=== PATIENT | female | born 1950 | race Caucasian/White ===

== ENCOUNTER → 2017-04-21 | Outpatient (CLI) | payer MEDICARE ==
[~2017-04-21] MED LIST: ACET500T68 PO; ALBU8.5H IH; AMLO-99 PO; ASCO-480 PO; ASPI81TA39 PO; BACL-1 PO; CEPH250C37 PO; CLON-389 PO; DIPH-740 PO; DOCU-416 PO; DULO60CA56 PO; Docusate Sodium PO; ESTR-35 PO; FAMO20TA28 PO; FENO145T PO; FLUC100T39 PO; HYDR-385 PO; INT1APT SUBQ; LEVO50TA86 PO; LISI-374 PO; MEDR5TAB PO; OXYC-374 PO; OXYGEN; PER PO; PILO5TAB12 PO; SIME125T56 PO; TIO18R INH; TRAM-420 PO; [UNRECOGNIZED DRUG - CODE] PO; [UNRECOGNIZED DRUG - CODE] PO; [UNRECOGNIZED DRUG - CODE] PO
[2017-04-21 10:58] LABS: PLATELET COUNT, AUTOMATED 290 K/uL (150-450)
== END ==
LOC: LAB 10:13
PROVIDERS: ATTEND Internal Medicine Nephrology
DX: I12.9 Hypertensive chronic kidney disease with stage 1 through stage 4 chronic kidney disease, or unspecified chronic kidney disease (principal); N18.3 Chronic kidney disease, stage 3 (moderate); E55.9 Vitamin D deficiency, unspecified; E21.2 Other hyperparathyroidism; R80.9 Proteinuria, unspecified
CPT/HCPCS: 36415; 82040; 82306; 82310; 82374; 82435; 82565; 82570; 82947; 83970; 84100; 84132; 84156; 84295; 84520; 85025

== ENCOUNTER → 2017-12-22 | Outpatient (CLI) | payer MEDICARE ==
[~2017-12-22] MED LIST changes: +AMLO-113 PO; -AMLO-99 PO; -FENO145T PO; +FENO145T36 PO
[2017-12-22 09:56] LABS: PLATELET COUNT, AUTOMATED 284 K/uL (150-450)
== END ==
LOC: LAB 09:33
PROVIDERS: ATTEND Internal Medicine Nephrology
DX: I12.9 Hypertensive chronic kidney disease with stage 1 through stage 4 chronic kidney disease, or unspecified chronic kidney disease (principal); N18.3 Chronic kidney disease, stage 3 (moderate); E83.52 Hypercalcemia; R80.1 Persistent proteinuria, unspecified; E55.9 Vitamin D deficiency, unspecified
CPT/HCPCS: 36415; 82040; 82306; 82310; 82374; 82435; 82565; 82570; 82947; 84100; 84132; 84156; 84295; 84520; 85025

== ENCOUNTER 2018-07-24 17:28 | Emergency (ER) | payer MEDICARE ==
[~2018-07-24 17:28] MED LIST changes: -AMLO-113 PO; +AMLO-127 PO
[2018-07-24 18:00] VITALS: BP 106/72
--- NOTE | 2018-07-24 18:03 | ER Report ---
History and Physical Time Seen By MD: 18:03 Hx. of Stated Complaint: has had redness in the left 5th toe for two weeks. was seen and told it was gout. redness has spread to thje whole top of the foot HPI/ROS CHIEF COMPLAINT: Redness, swelling and pain in the foot and left fifth toe HISTORY OF PRESENT ILLNESS: This is a 67-year-old female. She does have gout. She's had pain and redness in the left fifth toe for about 2 weeks. She was seen and was told it was gout. However the redness has spread onto the foot. She had been started on Bactrim and cephalexin. Despite this she is having increased redness swelling and pain. The left fifth toe is very swollen and very painful. Other than the pain, she has normal sensation. Denies any fevers or chills. Allergies: Coded Allergies: Iodinated Contrast Media - IV Dye (Verified Allergy, Severe, RESPIRATORY ARREST, 01/09/14) erythromycin base (Verified Allergy, Intermediate, SEVERE ABDOMINAL PAIN, 01/09/14) iodine (Verified Allergy, Intermediate, RASH, 01/09/14) ciprofloxacin (Verified Allergy, Unknown, 01/09/14) Uncoded Allergies: bandaids (Adverse Reaction, Unknown, 01/08/14) Home Meds Active Scripts Amoxicillin/Pot Clav 875-125 Mg Tab (AUGMENTIN 875-125 TABLET) 1 Each Tablet, 1 TAB PO Q12H, #20 TAB 0 Refills Prov:CORRINA LALA MD 07/24/18 Reported Medications [Oxygen] (Oxygen) No Conflict Check, 2 L NA HS 01/09/14 Famotidine (PEPCID) 20 Mg Tablet, 20 MG PO TID PRN for HEARTBURN, #10 TAB TAKE 1 TABLET BY MOUTH EVERY DAY 11/09/13 Ascorbic Acid (VITAMIN C WITH ROMÁN HIPS) 1,000 Mg Tablet, 2000 MG PO BID 11/09/13 Aspirin (SHRUTHI CHEWABLE) 81 Mg Tab.chew, 81 MG PO HS, TAB.CHEW 11/09/13 Acetaminophen (TYLENOL EXTRA STRENGTH) 500 Mg Tablet, 3057-5532 MG PO DAILY PRN for PAIN 11/09/13 Albuterol Sulfate 90 Mcg/Act (PROAIR HFA 90 MCG/ACT) 8.5 Gm Hfa.aer.ad, 1-2 PUFF IH DAILY PRN for CONGESTION 11/09/13 Tiotropium [place] (SPIRIVA) 18 Mcg/Cap Inh, 18 MCG INH DAILY, INH 11/09/13 Tramadol Hcl (TRAMADOL HCL) 50 Mg Tablet, 50 MG PO BID 11/09/13 Amlodipine Besylate (AMLODIPINE BESYLATE) 10 Mg Tablet, 1 TAB PO QDAY, TAB TAKE ONE TABLET BY MOUTH EVERY DAY 11/09/13 Baclofen (BACLOFEN) 10 Mg Tablet, 20-40 MG PO DAILY, #30 TAB Take 1 tablet in AM and 2 tablets in PM 11/09/13 Estradiol (ESTRACE) 1 Mg Tablet, 1 MG PO DAILY 11/09/13 Pilocarpine Hcl (PILOCARPINE HCL) 5 Mg Tablet, 2 TAB PO QID 11/09/13 Lisinopril (LISINOPRIL) 40 Mg Tablet, 40 MG PO QDAY 11/09/13 Interferon Beta-1A (REBIF 22 MCG/0.5 ML SYRINGE) 22 Mcg Injs, 22 MCG SUBQ 3XW 11/09/13 Levothyroxine Sodium (LEVOTHYROXINE SODIUM) 50 Mcg Tablet, 50 MCG PO QDAY 11/09/13 Discontinued Reported Medications Duloxetine Hcl (CYMBALTA) 60 Mg Capsule.dr, 60 MG PO QAM, #5 CAP TAKE 1 CAPSULE BY MOUTH EVERY DAY 01/08/14 Diphenhydramine Hcl (BENADRYL) 25 Mg Capsule, 25 MG PO Q6-8H PRN for ITCHING/INSOMNIA, CAPSULE TAKE 1 CAPSULE BY MOUTH EVERY 6 TO 8 HOURS 11/09/13 Simethicone (MYL[place] GAS MAXIMUM STRENGTH) 125 Mg Tab.chew, 125 MG PO PRN, TAB.CHEW 11/09/13 Mag Carb/Al Hydrox/Alginic Ac (GAVISCON EXTRA STRENGTH LIQ) 355 Ml Oral.susp, 355 ML PO PRN 11/09/13 Vitamin B Complex (STRESS B) 1 Each Tablet, 1 EACH PO DAILY 11/09/13 Clonazepam (CLONAZEPAM) 1 Mg Tab.rapdis, 1 MG PO BID PRN for ANXIETY, #6 TAB TAKE ONE TABLET BY MOUTH TWICE A DAY 11/09/13 Gabapentin Enacarbil (HORIZANT) 600 Mg Tab.er.24h, 600 MG PO DAILY 11/09/13 Fenofibrate Nanocrystallized (FENOFIBRATE) 145 Mg Tablet, 145 MG PO QDAY 11/09/13 Medroxyprogesterone Acetate (MEDROXYPROGESTERONE ACETATE) 5 Mg Tablet, 5 MG PO DAILY 11/09/13 Discontinued Scripts Fluconazole (FLUCONAZOLE) 100 Mg Tablet, 1 TAB PO QDAY, #8 TAB 0 Refills Take 2 tablets today and then 1 tablet each day for 6 days. Prov:JESSIE TOMAS MD 01/12/14 Oxycodone/Acetaminophen (OXYCODONE/ACETAMINOPHEN 5MG/325 MG) 1 Tab Tab, 1-2 TAB PO Q4H PRN for MODERATE PAIN, #20 TAB 0 Refills Prov:JESSIE TOMAS MD 01/12/14 [Docusate Sodium] 100 MG CAP No Conflict Check, 1 CAP PO BID, #30 CAP 0 Refills Prov:JESSIE TOMAS MD 01/12/14 Reviewed Nurses Notes: Yes Constitutional Vital Sign - Last 24 Hours 07/24/18 07/24/18 07/24/18 07/24/18 17:46 17:58 18:00 18:13 Temp 97.9 Pulse 91 86 80 Resp 18 B/P (MAP) 141/60 106/72 (83) Pulse Ox 90 95 95 O2 Delivery Nasal Cannula 07/24/18 07/24/18 07/24/18 07/24/18 18:18 18:33 18:48 19:03 Pulse 84 84 79 78 Pulse Ox 96 96 96 100 07/24/18 07/24/18 07/24/18 07/24/18 19:18 19:33 19:38 19:53 Pulse 86 78 78 76 Pulse Ox 91 98 95 95 07/24/18 07/24/18 07/24/18 07/24/18 20:08 20:13 20:28 20:43 Pulse 76 78 ??? 79 Pulse Ox 95 95 71 95 Physical Exam General Appearance: Alert, no acute distress. Cardiac: regular rate and rhythm, normal peripheral perfusion. Neuro: Normal sensation in the foot. Skin: Has redness with swelling and what appears to be fluctuance in the left fifth toe. Extremely tender to palpation. Also with redness and swelling extending up onto the dorsal surface of the foot. Musculoskeletal: Normal motor function. DIFFERENTIAL DIAGNOSIS: After history and physical exam differential diagnosis was considered for a patient with question of infection versus gout in the foot. This is more likely a combination of the 2. The toe itself could certainly be tophaceous gout but there appears to be more of an fluctuant pocket and, likely abscess Medical Decision Making Data Points Result Diagram: 07/24/18 1814 Laboratory Hematology Test 07/24/18 18:14 Red Blood Count 4.88 M/uL (4.17-5.56) Mean Corpuscular Volume 93.3 fL (80.0-96.0) Mean Corpuscular Hemoglobin 31.6 pg (26.0-33.0) Mean Corpuscular Hemoglobin Concent 33.9 g/dL (32.0-36.0) Red Cell Distribution Width 12.8 % (11.5-14.5) Mean Platelet Volume 7.3 fL (7.2-11.1) Neutrophils (%) (Auto) 78.2 % (39.4-72.5) Lymphocytes (%) (Auto) 9.1 % (17.6-49.6) Monocytes (%) (Auto) 10.7 % (4.1-12.4) Eosinophils (%) (Auto) 1.2 % (0.4-6.7) Basophils (%) (Auto) 0.8 % (0.3-1.4) Nucleated RBC Relative Count (auto) 0.0 /100WBC Neutrophils # (Auto) 8.6 K/uL (2.0-7.4) Lymphocytes # (Auto) 1.0 K/uL (1.3-3.6) Monocytes # (Auto) 1.2 K/uL (0.3-1.0) Eosinophils # (Auto) 0.1 K/uL (0.0-0.5) Basophils # (Auto) 0.1 K/uL (0.0-0.1) Nucleated RBC Absolute Count (auto) 0.00 K/uL Erythrocyte Sedimentation Rate 14 mm/HOUR (0-30) Uric Acid 11.0 mg/dl (2.5-7.5) Chemistry Test 07/24/18 18:14 White Blood Count 11.0 k/uL (4.5-11.0) Red Blood Count 4.88 M/uL (4.17-5.56) Hemoglobin 15.4 g/dL (12.0-16.0) Hematocrit 45.6 % (34.0-47.0) Mean Corpuscular Volume 93.3 fL (80.0-96.0) Mean Corpuscular Hemoglobin 31.6 pg (26.0-33.0) Mean Corpuscular Hemoglobin Concent 33.9 g/dL (32.0-36.0) Red Cell Distribution Width 12.8 % (11.5-14.5) Platelet Count 332 K/uL (150-450) Mean Platelet Volume 7.3 fL (7.2-11.1) Neutrophils (%) (Auto) 78.2 % (39.4-72.5) Lymphocytes (%) (Auto) 9.1 % (17.6-49.6) Monocytes (%) (Auto) 10.7 % (4.1-12.4) Eosinophils (%) (Auto) 1.2 % (0.4-6.7) Basophils (%) (Auto) 0.8 % (0.3-1.4) Nucleated RBC Relative Count (auto) 0.0 /100WBC Neutrophils # (Auto) 8.6 K/uL (2.0-7.4) Lymphocytes # (Auto) 1.0 K/uL (1.3-3.6) Monocytes # (Auto) 1.2 K/uL (0.3-1.0) Eosinophils # (Auto) 0.1 K/uL (0.0-0.5) Basophils # (Auto) 0.1 K/uL (0.0-0.1) Nucleated RBC Absolute Count (auto) 0.00 K/uL Erythrocyte Sedimentation Rate 14 mm/HOUR (0-30) Uric Acid 11.0 mg/dl (2.5-7.5) Microbiology Microbiology Date/Time Source Procedure Growth Status 07/24/18 20:52 Foot Left Wound Culture - Preliminary NO GROWTH SO FAR, SET LATE. REINCUBATED Resulted EKG/Imaging Imaging INDICATION: toe and foot red and swollen. DATE: 07/24/2018 8:07 PM. TECHNIQUE: TOE LEFT FOOT FIFTH DIGIT COMPARISON: None FINDINGS: Soft tissues at the little toe are markedly swollen at the level of the middle and distal phalanx. No fracture is conspicuous. IMPRESSION: Notable soft tissue swelling of the little toe but no conspicuous fracture. Trauma or infection could both be possible etiologies. Report Dictated By: Boston Puckett MD at 07/24/2018 8:07 PM ED Course/Re-evaluation ED Course Initial x-ray was done, no signs of degeneration of the bone or signs of osteomyelitis. There is significant swelling. After the x-ray, discussed with the patient we need to find out what was going on in that toe. Recommended doing a digital block followed by attempted aspiration followed by possible need for incision and drainage. Explained the risks and benefits and she agreed to go ahead with this. Procedure: Toe swelling and fluctuant pocket drainage The patient's abscess was located on the left fifth toe. I obtained verbal consent from the patient to drain the abscess who was informed about the possibility of bleeding and pain. Digital block of the left fifth toe was done using 1% lidocaine without epinephrine and 0.5% bupivacaine without epinephrine after this was numbed, using some Chloroprep, attempted aspiration was done. Unable to aspirate any fluid, so switched to an incision and drainage technique. The abscess was incised with a scalpel and a large amount of purulent drainage was expressed. This may have been a combination of purulence as well as tophi. I irrigated the wound and placed some packing. The patient tolerated the procedure well. The procedure was performed by myself. Stopped Bactrim because it could make gout flareup worse, and the cephalexin will not provide broad enough coverage at this point. Switched to Augmentin 875/125 twice a day for 10 days. Recommended follow-up with primary care tomorrow as planned for reevaluation. Decision to Disposition Date: July 24, 2018 Decision to Disposition Time: 21:02 Depart Departure Latest Vital Signs Vital Signs Date Time Temp Pulse Resp B/P (MAP) Pulse Ox O2 Delivery O2 Flow Rate FiO2 07/24/18 20:43 79 95 07/24/18 18:00 106/72 (83) 07/24/18 17:46 97.9 18 Nasal Cannula Impression: Primary Impression: Cellulitis of foot Additional Impression: Abscess of toe of left foot Condition: Improved Disposition: HOME OR SELF-CARE Referrals: JESSIE MATSON MD (PCP) New Scripts Amoxicillin/Pot Clav 875-125 Mg Tab (AUGMENTIN 875-125 TABLET) 1 Each Tablet 1 TAB PO Q12H, #20 TAB 0 Refills Prov: CORRINA LALA MD 07/24/18 Patient Instructions: Cellulitis (ED) Additional Instructions: Stop the Cephalexin and Bactrim because at this time the Cephalexin will not provide enough coverage for the types of bacteria we are concerned about and the Bactrim can make gout flare up worse. Start Augmentin 875/125 twice a day for 10 days. Percocet 5/325, one every 4 hours as needed for pain. Follow-up with your doctor tomorrow as planned for wound re-check and follow-up of how the antibiotics are working. They will likely need to see you additional times this week as well. Problem Qualifiers CORRINA LALA MD July 24, 2018 18:03
[2018-07-24 18:50] LABS: PLATELET COUNT, AUTOMATED 332 K/uL (150-450)
--- NOTE | 2018-07-24 20:12 | RADIOLOGY IMAGING REPORT ---
FACILITY: [facility] PATIENT NAME: Chery Luther : 1950 MR: [id number] V: [id number] EXAM DATE: ORDERING PHYSICIAN: CORRINA LALA TECHNOLOGIST: Location: [facility] - [place] Patient: Chery Luther : 1950 Visit/Account:[id number] Date of Sevice: 07/24/2018 INDICATION: toe and foot red and swollen. DATE: 07/24/2018 8:07 PM. TECHNIQUE: TOE LEFT FOOT FIFTH DIGIT COMPARISON: None FINDINGS: Soft tissues at the little toe are markedly swollen at the level of the middle and distal p halanx. No fracture is conspicuous. IMPRESSION: Notable soft tissue swelling of the little toe but no conspicuous fracture. Trauma or infection could both be possible etiologies. Report Dictated By: Boston Puckett MD at 07/24/2018 8:07 PM Report E-Signed By: Boston Puckett MD at 07/24/2018 8:08 PM WSN:[id number]
[2018-07-24] MEDS ORDERED: AMOX/CLAV 875 MG TAB PO ONE (21:00)
[2018-07-24] MEDS ORDERED: AMOX-559 PO (21:04)
== END 2018-07-24 21:33 | disposition home or self-care (01) ==
LOC: ER 17:56
DX: L03.116 Cellulitis of left lower limb (principal); L02.612 Cutaneous abscess of left foot
CPT/HCPCS: 10060; 36415; 73660; 84550; 85025; 85651; 87070; A9270; 99283

== ENCOUNTER → 2018-08-15 | Outpatient (CLI) | payer MEDICARE ==
[~2018-08-15] MED LIST changes: +AMOX-559 PO
--- NOTE | 2018-08-17 08:20 | RADIOLOGY IMAGING REPORT ---
FACILITY: [facility] PATIENT NAME: VINI ALVAREZ : [id number] MR: [id number]: [id number] EXAM DATE: [id number] ORDERING PHYSICIAN: JESSIE MATSON TECHNOLOGIST: Mouna Trinh PROCEDURE: BILATERAL DIGITAL SCREENING MAMMOGRAM WITH CAD ASSISTED INTERPRETATION & 3D TOMOSYNTHESIS REASON FOR STUDY: Screening FAMILY HISTORY OF BREAST CANCER: Paternal Aunt BREAST PROCEDURES/TREATMENTS: None COMPARISON: 04/09/15, 08/22/12, 08/17/12 VIEWS OBTAINED: Bilateral 2D & 3D full field CC & MLO projections BREAST DENSITY: The breasts are heterogeneously dense which can obscure small masses. MAMMOGRAM FINDINGS: The parenchymal pattern has remained stable allowing for difference in mammographic technique & patient positioning. IMPRESSION: BIRADS 1: Negative. DIAGNOSTIC CATEGORY 1--NEGATIVE. RECOMMENDATIONS: ROUTINE MAMMOGRAM AND CLINICAL EVALUATION. Dictated by: Sherin Santoro M.D. on 08/15/2018 at 18:21 Transcribed by: LAKHWINDER on 08/16/2018 at 7:31 Approved by: Sherin Santoro M.D. on 08/17/2018 at 8:19 [facility]
== END ==
LOC: MAMO 00:48
PROVIDERS: ATTEND Family Medicine
DX: Z12.31 Encounter for screening mammogram for malignant neoplasm of breast (principal); Z80.3 Family history of malignant neoplasm of breast
CPT/HCPCS: 77063; 77067